=== PATIENT | female | born 1985 | race Caucasian/White ===

== ENCOUNTER 2016-12-23 07:26 | Emergency (ER) | payer OTHER ==
[2016-12-23 07:37] VITALS: BP 130/91
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
== END 2016-12-23 12:16 | disposition home or self-care (01) ==
LOC: ED 07:26
DX: S13.4XXA Sprain of ligaments of cervical spine, initial encounter (principal); R51 Headache; R07.9 Chest pain, unspecified; V89.2XXA Person injured in unspecified motor-vehicle accident, traffic, initial encounter; Y93.89 Activity, other specified; Y99.8 Other external cause status; Y92.488 Other paved roadways as the place of occurrence of the external cause
CPT/HCPCS: 71020; 72125; 81025; 93005; 93010